=== PATIENT | female | born 1980 | race Caucasian/White ===

== ENCOUNTER → 2019-06-04 | Outpatient (CLI) | payer BC | END | disposition home or self-care (01) | LOC: LABWHC1 15:22 | PROVIDERS: ATTEND Internal Medicine Clinical Cardiac Electrophysiology | DX: E34.0 Carcinoid syndrome (principal) | CPT/HCPCS: 36415 ==

== ENCOUNTER → 2019-06-08 | Day surgery (SDC) | payer BC ==
[2019-05-31 13:35] VITALS: BMI 26.2
[~2019-06-08] MED LIST: SODIUM CHLORIDE 0.9% 1,000 ML IV SCH; SODIUM CHLORIDE 0.9% 500 ML 500 ML IV ONE
[2019-06-08 10:41] VITALS: BP 119/69; PULSE 86; RESP 16; TEMP 97
--- NOTE | 2019-06-08 14:36 | P.PCN ---
Preoperative Diagnosis: Diagnosis recurrent syncope while lying down and at night Twelve-lead ECG shows sinus rhythm normal NC narrow QRS normal ST segments no rmal QT interval no epsilon waves no delta waves Tilt table test protocol Baseline blood pressure 121/76. His mercury Baseline heart rate 89 beats a minute Patient was tilted upright at an angle of 70 per protocol She felt her heartbeat faster but heart rate is in the 90s. She complained of being a little lightheaded and dizzy and her blood pressure is normal later she complained of having heavy chest heart rate is 100 beats a minute blood pressure is normal However heart rate and blood pressure remained stable throughout the procedure There was no evidence for neurocardiogenic syncope No evidence for cardiomegaly but response No evidence for postural tachycardia syndrome or dysautonomia Impression Normal telemetry ECG Normal heart rate and blood pressure response to upright tilting it Plan Continue event monitoring Follow-up with Dr. Tala stiles
== END ==
LOC: CATHEP 09:49
PROVIDERS: ATTEND Internal Medicine Clinical Cardiac Electrophysiology
DX: R55 Syncope and collapse (principal); I49.8 Other specified cardiac arrhythmias; Z79.899 Other long term (current) drug therapy; Z88.0 Allergy status to penicillin
CPT/HCPCS: 81025; 93660

== ENCOUNTER 2021-11-04 09:56 | Emergency (ER) | payer BC, OTHER ==
[2021-11-04 10:12] VITALS: BP 126/77; PULSE 82; RESP 18; TEMP 97.5
--- NOTE | 2021-11-04 11:07 | ED ---
General Adult HPI - General Chief complaint: Skin/Abscess/Foreign Body Stated complaint: Infection Time Seen by Provider: 11/04/21 10:10 Source: patient, RN notes reviewed, old records reviewed Mode of arrival: ambulatory Limitations: no limitations - History of Present Illness Initial comments: This is a 40-year-old female presents emergency Department complaining of her surgical site being open. Patient states she had a tummy tuck 5 weeks ago and t here is an area of dehiscence. She is on Keflex at this time. She states she center picture of her wound to her surgeon and he did not think that the wound looked bad at this time and told her that it was normal. Patient is concerned that the area might be infected. Patient denies any fever chills per patient denies any increased redness per patient denies any chest pain difficulty breathing first breath. - Related Data Home Medications Medication Instructions Recorded Confirmed PARoxetine [Paxil] 10 mg PO DAILY 05/31/19 06/08/19 Previous Rx's Medication Instructions Recorded Sulfamethox-Tmp 800-160Mg [Bactrim 1 each PO Q12HR #14 tab 11/04/21 DS 800-160 mg] Allergies Allergy/AdvReac Type Severity Reaction Status Date / Time Penicillins Allergy Dyspnea Verified 11/04/21 10:11 Review of Systems ROS Statement: Those systems with pertinent positive or pertinent negative responses have been documented in the HPI. ROS Other: All systems not noted in ROS Statement are negative. Past Medical History Past Medical History: No Reported History Additional Past Medical History / Comment(s): SEE DR SANDS'S HISTORY AND PHYSICAL FOR CARDIAC HISTORY History of Any Multi-Drug Resistant Organisms: None Reported Past Surgical History: No Surgical Hx Reported Past Anesthesia/Blood Transfusion Reactions: Motion Sickness Past Psychological History: Anxiety Smoking Status: Never smoker Past Alcohol Use History: None Reported Past Drug Use History: None Reported - Past Family History Mother Family Medical History: No Reported History General Exam - General Exam Comments Initial Comments: GENERAL: Patient is well-developed and well-nourished. Patient is nontoxic and well- hydrated and is in no acute distress. ENT: Neck is soft and supple. No significant lymphadenopathy is noted. Oropharynx is clear. Moist mucous membranes. Neck has full range of motion without eliciting any pain. EYES: The sclera were anicteric and conjunctiva were pink and moist. Extraocular movements were intact and pupils were equal round and reactive to light. Eyelids were unremarkable. PULMONARY: Unlabored respirations. Good breath sounds bilaterally. No audible rales rhonchi or wheezing was noted. CARDIOVASCULAR: There is a regular rate and rhythm without any murmurs gallops or rubs. ABDOMEN: Patient has a scar across lower abdomen and there is an area of dehiscence measuring about 5 cm there is no erythema around the dehiscence. SKIN: Skin is clear with no lesions or rashes and otherwise unremarkable. NEUROLOGIC: Patient is alert and oriented x3. Cranial nerves II through XII are grossly intact. Motor and sensory are also intact. Normal speech, volume and content. Symmetrical smile. MUSCULOSKELETAL: Normal extremities with adequate strength and full range of motion. LYMPHATICS: No significant lymphadenopathy is noted PSYCHIATRIC: Normal psychiatric evaluation. Limitations: no limitations Course Vital Signs 11/04/21 10:09 Temperature 97.5 F L Pulse Rate 82 Respiratory 18 Rate Blood Pressure 126/77 O2 Sat by Pulse 100 Oximetry Medical Decision Making - Lab Data Result diagrams: 11/04/21 11:15 11/04/21 11:15 Lab Results 11/04/21 11/04/21 Range/Units 11:15 11:15 WBC 7.8 (3.8-10.6) k/uL RBC 4.65 (3.80-5.40) m/uL Hgb 12.1 (11.4-16.0) gm/dL Hct 38.9 (34.0-46.0) % MCV 83.6 (80.0-100.0) fL MCH 26.1 (25.0-35.0) pg MCHC 31.3 (31.0-37.0) g/dL RDW 13.5 (11.5-15.5) % Plt Count 294 (150-450) k/uL MPV 8.4 Neutrophils % 79 % Lymphocytes % 14 % Monocytes % 4 % Eosinophils % 2 % Basophils % 0 % Neutrophils # 6.2 (1.3-7.7) k/uL Lymphocytes # 1.1 (1.0-4.8) k/uL Monocytes # 0.3 (0-1.0) k/uL Eosinophils # 0.1 (0-0.7) k/uL Basophils # 0.0 (0-0.2) k/uL Hypochromasia Slight Sodium 139 (137-145) mmol/L Potassium 5.4 H (3.5-5.1) mmol/L Chloride 106 (98-107) mmol/L Carbon Dioxide 25 (22-30) mmol/L Anion Gap 8 mmol/L BUN 11 (7-17) mg/dL Creatinine 0.59 (0.52-1.04) mg/dL Est GFR (CKD-EPI)AfAm >90 (>60 ml/min/1.73 sqM) Est GFR (CKD-EPI)NonAf >90 (>60 ml/min/1.73 sqM) Glucose 84 (74-99) mg/dL Calcium 8.7 (8.4-10.2) mg/dL Total Bilirubin 0.7 (0.2-1.3) mg/dL AST 42 H (14-36) U/L ALT 29 (4-34) U/L Alkaline Phosphatase 90 (38-126) U/L Total Protein 7.7 (6.3-8.2) g/dL Albumin 4.5 (3.5-5.0) g/dL Disposition Clinical Impression: Wound dehiscence Disposition: HOME SELF-CARE Condition: Good Instructions (If sedation given, give patient instructions): Wound Dehiscence (ED) Prescriptions: Sulfamethox-Tmp 800-160Mg [Bactrim DS 800-160 mg] 1 each PO Q12HR #14 tab Is patient prescribed a controlled substance at d/c from ED?: No Referrals: Brad Orellana MD [Primary Care Provider] - 1-2 days Time of Disposition: 12:15
[2021-11-04 11:42] LABS: Basophils % (A) 0 %; Eosinophils # (A) 0.1 k/uL (0-0.7); Eosinophils % (A) 2 %; HCT 38.9 % (34.0-46.0); HGB 12.1 gm/dL (11.4-16.0); Hypochromasia Slight; Lymphocytes # (A) 1.1 k/uL (1.0-4.8); Lymphocytes % (A) 14 %; MCH 26.1 pg (25.0-35.0); MCHC 31.3 g/dL (31.0-37.0); MCV 83.6 fL (80.0-100.0); Mean Platelet Volume 8.4; Monocytes # (A) 0.3 k/uL (0-1.0); Monocytes % (A) 4 %; Neutrophils # (A) 6.2 k/uL (1.3-7.7); Neutrophils % (A) 79 %; Platelet Count 294 k/uL (150-450); RBC 4.65 m/uL (3.80-5.40); RDW 13.5 % (11.5-15.5); WBC 7.8 k/uL (3.8-10.6)
[2021-11-04 11:49] LABS: ALT 29 U/L (4-34); AST 42 U/L (14-36); African American GFR (CKD) >90 (>60 ml/min/1.73 sqM); Albumin 4.5 g/dL (3.5-5.0); Alkaline Phosphatase 90 U/L (38-126); Anion Gap 8 mmol/L; Blood Urea Nitrogen 11 mg/dL (7-17); Calcium 8.7 mg/dL (8.4-10.2); Carbon Dioxide 25 mmol/L (22-30); Chloride 106 mmol/L (98-107); Glucose 84 mg/dL (74-99); Non-African American GFR(CKD) >90 (>60 ml/min/1.73 sqM); Potassium 5.4 mmol/L (3.5-5.1); Sodium 139 mmol/L (137-145); Total Bilirubin 0.7 mg/dL (0.2-1.3); Total Protein 7.7 g/dL (6.3-8.2)
== END 2021-11-04 12:48 | disposition home or self-care (01) ==
LOC: EC 09:56
DX: T81.30XA Disruption of wound, unspecified, initial encounter (principal); Z88.0 Allergy status to penicillin
CPT/HCPCS: 36415; 80053; 85025; 87040; 87070; 87077; 87186; 87205; 99283

== ENCOUNTER → 2022-06-04 | Outpatient (CLI) | payer OTHER ==
[2022-06-04 23:32] LABS: African American GFR (CKD) 128.8 (60.0-200.0); Albumin 4.7 g/dL (3.8-4.9); Albumin/Globulin Ratio 2.01 (1.60-3.17); Anion Gap 12.7 mmol/L (10.00-18.00); BUN/Creat Ratio 20.58 Ratio (12.00-20.00); Blood Urea Nitrogen 12.8 mg/dL (9.0-27.0); Calcium 9.7 mg/dL (8.7-10.3); Carbon Dioxide 25.7 mmol/L (20.0-27.5); Globulin 2.3 g/dL (1.6-3.3); Non-African American GFR(CKD) 111.1 (60.0-200.0); Potassium 4.3 mmol/L (3.5-5.5); T4, Free (Free Thyroxine) 1.07 ng/dL (0.800-1.800); Total Bilirubin 0.3 mg/dL (0.30-1.20)
== END | disposition home or self-care (01) ==
LOC: LABWHC1 14:50
PROVIDERS: ATTEND Internal Medicine Geriatric Medicine
DX: G70.01 Myasthenia gravis with (acute) exacerbation (principal); E03.9 Hypothyroidism, unspecified; R79.9 Abnormal finding of blood chemistry, unspecified
CPT/HCPCS: 36415; 80053; 83036; 84439; 84443; 85025